=== PATIENT | male | born 1985 | race Caucasian/White ===

== ENCOUNTER 2017-03-22 01:51 | Inpatient (IN) | payer MEDICAID, OTHER ==
[~2017-03-22] VITALS: Ht 170.2 cm; Wt 98.4 kg
[2017-03-22 03:17] LABS: BASOPHILS % 0.7 % (0.0-2.0); EOSINOPHILS % 0.6 % (0.0-5.0); HEMOGLOBIN. 13.3 g/dL (14.0-18.0); LYMPHOCYTES % 22.2 % (20.0-50.0); MEAN CORPUSCULAR HEMOGLOBIN 29.2 pg (28.0-32.0); MEAN CORPUSCULAR VOLUME 85.6 fL (80.0-94.0); MEAN PLATELET VOLUME 7.5 fl (7.4-10.4); MONOCYTES % 12.9 % (2.0-8.0); NEUTROPHILS % 63.6 % (40.0-76.0); PLATELET 246 x1000/uL (130-400); RED BLOOD CELL COUNT 4.56 mill/uL (4.7-6.1); RED CELL DISTRIBUTION WIDTH 14.5 % (11.6-14.6)
[2017-03-22 03:19] LABS: INR 1.1
[2017-03-22 04:16] LABS: CARBON DIOXIDE 27 mEq/L (21-32); CHLORIDE 102 mEq/L (98-107)
[2017-03-22 06:12] LABS: CLARITY URINE CLEAR (CLEAR); COLOR URINE YELLOW (YELLOW); GLUCOSE URINE NEGATIVE (NEGATIVE); KETONES URINE NEGATIVE (NEGATIVE); LEUKOCYTE ESTERASE URINE NEGATIVE (NEGATIVE); NITRITE URINE NEGATIVE (NEGATIVE); OCCULT BLOOD URINE 1+ (NEGATIVE); PH URINE 5.5 (4.5-8.0); PROTEIN URINE TRACE (NEGATIVE); SPECIFIC GRAVITY URINE 1.035 (1.005-1.030)
[2017-03-22 09:10] VITALS: BP 121/76
[2017-03-22] MEDS ORDERED: MORPHINE SULFATE 4 MG/ML CPJ (NOT FOR IM USE) IV PRN (11:15)
[2017-03-22] MEDS ORDERED: HYDROCODONE/ACETAMINOPHEN 5/325MG TABLET PO PRN (11:15)
[2017-03-22] MEDS: ENOXAPARIN 30MG/0.3ML SYR SUBCUT SCH ×2 (12:37→22:36)
[2017-03-22] MEDS ORDERED: VANCOMYCIN 1500MG in DEXTROSE 5% WATER 250ML IV NR (13:00)
[2017-03-22 16:20] VITALS: BP 119/57
[2017-03-22 20:35] VITALS: BP 121/70
[2017-03-22] MEDS: VANCOMYCIN 1 G PREMIX 200 ML IV SCH (22:35)
[2017-03-23 04:00] VITALS: BP 130/79
[2017-03-23] MEDS: VANCOMYCIN 1 G PREMIX 200 ML IV SCH ×3 (06:00→21:02)
[2017-03-23 06:44] LABS: HEMATOCRIT. 38.9 % (42.0-52.0); HEMOGLOBIN. 13.1 g/dL (14.0-18.0); MEAN CORPUSCULAR VOLUME 86.4 fL (80.0-94.0); MEAN PLATELET VOLUME 7.3 fl (7.4-10.4); PLATELET 257 x1000/uL (130-400); RED BLOOD CELL COUNT 4.51 mill/uL (4.7-6.1); RED CELL DISTRIBUTION WIDTH 14.7 % (11.6-14.6)
[2017-03-23 07:43] LABS: CARBON DIOXIDE 30 mEq/L (21-32); CHLORIDE 103 mEq/L (98-107)
[2017-03-23 07:59] VITALS: BP 113/80
[2017-03-23] MEDS: ENOXAPARIN 30MG/0.3ML SYR SUBCUT SCH ×2 (09:15→21:03)
[2017-03-23 12:00] VITALS: BP 127/80
[2017-03-23 16:02] VITALS: BP 120/77
[2017-03-23 17:17] LABS: PLATELET ESTIMATE NORMAL
[2017-03-23 20:00] VITALS: BP 115/70
[2017-03-24] VITALS: BP 122/62
[2017-03-24 03:25] LABS: CARBON DIOXIDE 31 mEq/L (21-32); CHLORIDE 103 mEq/L (98-107); VANCOMYCIN TROUGH 16.8 ug/mL (5.0-10.0)
[2017-03-24 04:00] VITALS: BP 119/70
[2017-03-24] MEDS: VANCOMYCIN 1 G PREMIX 200 ML IV SCH (05:00)
[2017-03-24 08:00] VITALS: BP 115/85
[2017-03-24] MEDS: ENOXAPARIN 30MG/0.3ML SYR SUBCUT SCH (09:00)
[2017-03-24 11:38] VITALS: BP 115/85
== END 2017-03-24 12:35 | disposition home or self-care (01) | DRG 383 ==
LOC: ER 01:51 → 6WST 04:24 → EDBEDREQ 06:30 → ENRESERV 06:55
PROVIDERS: ADMIT Internal Medicine; ATTEND Internal Medicine
DX: L03.116 Cellulitis of left lower limb (principal); R65.10 Systemic inflammatory response syndrome (SIRS) of non-infectious origin without acute organ dysfunction; F10.20 Alcohol dependence, uncomplicated; F17.210 Nicotine dependence, cigarettes, uncomplicated; R21 Rash and other nonspecific skin eruption; Y90.9 Presence of alcohol in blood, level not specified
CPT/HCPCS: 36415; 80048; 80053; 80202; 81001; 83605; 85025; 85610; 87040; 93971; 99285; J1650; J3370; J7040; J7060

== ENCOUNTER 2018-09-05 23:36 | Inpatient (IN) | payer MEDICAID ==
[~2018-09-05] VITALS: Ht 170.2 cm; Wt 111.1 kg
[2018-09-06] MEDS ORDERED: KETOROLAC 30MG/ML VIAL IV STA (02:31)
[2018-09-06] MEDS ORDERED: SODIUM CHLORIDE 0.9% 1,000 ML IV ONE (02:31)
[2018-09-06] MEDS ORDERED: VANCOMYCIN 1 G PREMIX 200 ML IV SCH (02:45)
[2018-09-06 03:09] LABS: CHLORIDE 99 mEq/L (98-107)
[2018-09-06 03:14] LABS: HEMATOCRIT. 46.2 % (42.0-52.0); HEMOGLOBIN. 15.4 g/dL (14.0-18.0); MEAN CORPUSCULAR HEMOGLOBIN 29.4 pg (28.0-32.0); MEAN CORPUSCULAR VOLUME 88.3 fL (80.0-94.0); MEAN PLATELET VOLUME 7.2 fl (7.4-10.4); PARTIAL THROMBOPLASTIN TIME 35.9 sec (23.4-31.0); PLATELET 285 x1000/uL (130-400); PROTHROMBIN TIME 10.1 sec (9.1-11.1); RED BLOOD CELL COUNT 5.23 mill/uL (4.7-6.1); RED CELL DISTRIBUTION WIDTH 14.8 % (11.6-14.6)
[2018-09-06 05:46] LABS: PLATELET ESTIMATE NORMAL
[2018-09-06 06:46] LABS: CLARITY URINE CLEAR (CLEAR); COLOR URINE YELLOW (YELLOW); KETONES URINE NEGATIVE (NEGATIVE); LEUKOCYTE ESTERASE URINE NEGATIVE (NEGATIVE); NITRITE URINE NEGATIVE (NEGATIVE); OCCULT BLOOD URINE 1+ (NEGATIVE); PH URINE 6.5 (4.5-8.0); PROTEIN URINE NEGATIVE (NEGATIVE); SPECIFIC GRAVITY URINE 1.014 (1.005-1.030)
[2018-09-06] MEDS ORDERED: CLONIDINE 0.1MG TABLET PO PRN (20:00)
[2018-09-06] MEDS ORDERED: ONDANSETRON HCL 4MG/2ML INJ IV PRN (20:00)
[2018-09-06] MEDS ORDERED: DOCUSATE SODIUM 100MG CAPSULE PO PRN (20:00)
[2018-09-06] MEDS ORDERED: LORAZEPAM 0.5MG TABLET PO PRN (20:00)
[2018-09-06] MEDS ORDERED: IPRATROPIUM/ALBUTEROL 0.5-3(2.5)MG/3ML NEB INH PRN (20:00)
[2018-09-06] MEDS ORDERED: ACETAMINOPHEN 325MG TABLET PO PRN (20:00)
[2018-09-06] MEDS ORDERED: HYDROCODONE/ACETAMINOPHEN 5/325MG TABLET PO PRN (20:00)
[2018-09-06 20:48] LABS: PHOSPHORUS 2.7 mg/dL (2.5-4.9)
[2018-09-07 05:17] LABS: BASOPHILS % 0.2 % (0.0-2.0); EOSINOPHILS % 0.8 % (0.0-5.0); HEMATOCRIT. 40.1 % (42.0-52.0); HEMOGLOBIN. 13.3 g/dL (14.0-18.0); LYMPHOCYTES % 11.1 % (20.0-50.0); MEAN CORPUSCULAR HEMOGLOBIN 29.3 pg (28.0-32.0); MEAN CORPUSCULAR VOLUME 88.2 fL (80.0-94.0); MEAN PLATELET VOLUME 7.2 fl (7.4-10.4); MONOCYTES % 9.3 % (2.0-8.0); NEUTROPHILS % 78.6 % (40.0-76.0); PLATELET 255 x1000/uL (130-400); RED BLOOD CELL COUNT 4.55 mill/uL (4.7-6.1); RED CELL DISTRIBUTION WIDTH 14.5 % (11.6-14.6)
[2018-09-07 05:18] LABS: CHLORIDE 104 mEq/L (98-107)
[2018-09-07] MEDS ORDERED: TETANUS, DIPHTHERIA, PERTUSSIS VAC/PF 0.5ML (>7YR OLD) IM ONE (06:00)
[2018-09-07] MEDS ORDERED: PIPERACILLIN/TAZ 3.375G PREMIX 50 ML IV SCH (07:30)
[2018-09-07] MEDS ORDERED: VANCOMYCIN 2,000 MG in DEXT 5% WATER 500 ML IV NR (08:30)
[2018-09-07 09:40] VITALS: BP 132/80
[2018-09-07 11:18] LABS: *AMPHETAMINES SCREEN URINE PRESUMTIVE POSITIVE (NEGATIVE); *BARBITURATES SCREEN URINE NEGATIVE (NEGATIVE); *BENZODIAZEPINES SCREEN URINE NEGATIVE (NEGATIVE); *COCAINE SCREEN URINE NEGATIVE (NEGATIVE); METHADONE URINE SCREEN NEGATIVE (NEGATIVE)
[2018-09-07 11:19] LABS: CANNABINOID URINE SCREEN NEGATIVE (NEGATIVE); OPIATES URINE SCREEN NEGATIVE (NEGATIVE); PHENCYCLIDINE URINE SCREEN NEGATIVE (NEGATIVE)
[2018-09-07 12:00] VITALS: BP 124/54
[2018-09-07] MEDS: PIPERACILLIN/TAZ 3.375G PREMIX 50 ML IV SCH ×2 (14:00→20:23)
[2018-09-07 16:00] VITALS: BP 138/71
[2018-09-07] MEDS: VANCOMYCIN 1250MG in DEXTROSE 5% WATER 250ML IV SCH (17:32)
[2018-09-07 20:00] VITALS: BP 120/74
[2018-09-08] VITALS: BP 121/76
[2018-09-08] MEDS: VANCOMYCIN 1250MG in DEXTROSE 5% WATER 250ML IV SCH ×3 (00:05→17:36)
[2018-09-08] MEDS: PIPERACILLIN/TAZ 3.375G PREMIX 50 ML IV SCH ×3 (02:51→14:43)
[2018-09-08 04:00] VITALS: BP 125/74
[2018-09-08 07:23] LABS: CHLORIDE 105 mEq/L (98-107)
[2018-09-08 08:00] VITALS: BP 123/83
[2018-09-08 08:01] LABS: HEMATOCRIT. 39.5 % (42.0-52.0); HEMOGLOBIN. 12.9 g/dL (14.0-18.0); MEAN CORPUSCULAR HEMOGLOBIN 28.7 pg (28.0-32.0); MEAN CORPUSCULAR VOLUME 87.8 fL (80.0-94.0); MEAN PLATELET VOLUME 7.3 fl (7.4-10.4); PLATELET 331 x1000/uL (130-400); RED CELL DISTRIBUTION WIDTH 14.8 % (11.6-14.6)
[2018-09-08 12:00] VITALS: BP 133/83
[2018-09-08 16:00] VITALS: BP 122/99
[2018-09-08 18:37] VITALS: BP 118/65
[2018-09-09 07:41] LABS: PLATELET ESTIMATE NORMAL
[2018-09-10 08:19] LABS: HIV SCREEN 4G Non Reactive (Non Reactive)
== END 2018-09-08 19:30 | disposition home or self-care (01) | DRG 720 ==
LOC: ER 23:36 → 6EST 09-06 03:35 → EDBEDREQ 09-06 03:38 → EDBEDREQSVC 09-06 03:38 → EDBEDREQTM 09-06 03:38 → ENRESERV 09-06 21:08 → CANRESERV 09-06 21:08 → EDBEDREQSVC 09-06 23:45 → ENRESERV 09-07 08:58
PROVIDERS: ADMIT Internal Medicine; ATTEND Internal Medicine
DX: A41.9 Sepsis, unspecified organism (principal); E87.2 Acidosis; E44.1 Mild protein-calorie malnutrition; E66.01 Morbid (severe) obesity due to excess calories; E78.5 Hyperlipidemia, unspecified; F15.90 Other stimulant use, unspecified, uncomplicated; E87.1 Hypo-osmolality and hyponatremia; F17.200 Nicotine dependence, unspecified, uncomplicated; L03.116 Cellulitis of left lower limb; Z86.718 Personal history of other venous thrombosis and embolism; Z68.38 Body mass index [BMI] 38.0-38.9, adult
CPT/HCPCS: 36415; 80048; 80061; 80202; 80305; 83036; 83605; 83735; 84100; 84145; 84443; 87389; 90715; 93971; 96365; 96366; 96375; 99291; J1885; J2543; J3370; J7030; J7060

== ENCOUNTER 2023-02-23 00:10 | Emergency (ER) | payer OTHER ==
[~2023-02-23] VITALS: Ht 170.2 cm; Wt 116.0 kg
[~2023-02-23 00:10] MED LIST: CEPH500T MT
[2023-02-23 00:40] VITALS: O2SAT 98
[2023-02-23] MEDS ORDERED: KETOROLAC 15MG/ML VIAL IV ONE (01:45)
[2023-02-23] MEDS ORDERED: VANCOMYCIN 1G PREMIX 200 ML IV SCH (01:45)
[2023-02-23] MEDS ORDERED: SODIUM CHLORIDE 0.9% 1,000 ML IV ONE (01:45)
[2023-02-23] MEDS ORDERED: PIPERACILLIN/TAZOBACTAM 3.375GM/50ML PREMIX IV ONE (01:45)
[2023-02-23] MEDS ORDERED: PIPERACILLIN/TAZ 3.375G PREMIX 50 ML IV NR (02:00)
[2023-02-23 03:02] LABS: BASOPHILS % 0.2 % (0.0-2.0); EOSINOPHILS % 0.1 % (0.0-5.0); HEMOGLOBIN. 14.5 g/dL (14.0-18.0); MEAN CORPUSCULAR HEMOGLOBIN 28.6 pg (28.0-32.0); MEAN CORPUSCULAR HGB CONC 32.9 g/dL (31.0-37.0); MEAN CORPUSCULAR VOLUME 86.8 fL (80.0-94.0); MEAN PLATELET VOLUME 7.5 fl (7.4-10.4); MONOCYTES % 6.8 % (2.0-8.0); NEUTROPHILS % 82.9 % (40.0-76.0); PLATELET 246 x1000/uL (130-400); RED BLOOD CELL COUNT 5.07 mill/uL (4.7-6.1); RED CELL DISTRIBUTION WIDTH 15.2 % (11.6-14.6); WHITE BLOOD COUNT 11.9 x1000/uL (4.5-11.0)
[2023-02-23 03:09] LABS: CHLORIDE 102 mEq/L (98-107); POTASSIUM 3.8 mEq/L (3.5-5.1); SODIUM 133 mEq/L (136-145)
[2023-02-23 03:51] LABS: ALANINE AMINOTRANSFERASE 41 IU/L (13-61); ASPARTATE AMINOTRANSFERASE 22 IU/L (15-37); BILIRUBIN TOTAL 0.4 mg/dL (0.1-1.0); CARBON DIOXIDE 23 mEq/L (21-32); CREATININE 0.9 mg/dL (0.6-1.3); GLUCOSE 123 mg/dL (70-105); INDEX HEMOLYSI 1 (1-3); INDEX ICTERIC 1 (1-4); INDEX LIPEMIC 1 (1-3); PROTEIN TOTAL 8.4 g/dL (6.0-8.3); UREA NITROGEN BLOOD 12 mg/dL (7-21)
[2023-02-23 04:37] VITALS: BP 119/87; PULSE 86; RESP 14; TEMP 98.3
== END 2023-02-23 04:58 | disposition short-term general hospital (02) ==
LOC: ER 00:10
DX: L03.116 Cellulitis of left lower limb (principal); F12.10 Cannabis abuse, uncomplicated
CPT/HCPCS: 99285; 96365; 93971; 96367; 96366; 96375; 80053; 85025; 87040; 36415; J1885; J2543; J3370; J7030

== ENCOUNTER 2024-03-10 16:09 | Emergency (ER) | payer SELFPAY ==
[~2024-03-10] VITALS: Ht 172.7 cm; Wt 105.0 kg
[2024-03-10 16:21] VITALS: TEMP 98.4; O2SAT 99
[2024-03-10 16:39] VITALS: O2SAT 98
[2024-03-10] MEDS ORDERED: KETOROLAC 15MG/ML VIAL IM ONE (19:15)
[2024-03-10] MEDS ORDERED: CEPH500T MT (21:06)
[2024-03-10 21:23] VITALS: BP 145/102; PULSE 80; RESP 16
[2024-03-10] MEDS: KETOROLAC 15MG/ML VIAL IM NR (21:23)
== END 2024-03-10 21:46 | disposition home or self-care (01) ==
LOC: ER 16:09
DX: L03.116 Cellulitis of left lower limb (principal)
CPT/HCPCS: 99285; 93971; 71045; 96372; J1885